=== PATIENT | male | born 1970 | race Caucasian/White ===

== ENCOUNTER 2020-02-17 12:33 | Outpatient (REF) | payer OTHER, SELFPAY ==
[2020-02-17 13:44] LABS: MANUAL DIFF FLAG NO
[2020-02-17 13:57] LABS: Basophils Percent Auto 0.8 % (0-2); Eosinophils Percent Auto 0.8 % (0-4); Hematocrit 42.4 % (42-52); Hemoglobin 14.3 g/dl (14.0-18.0); Imm Gran Abs Auto 0.01 X10*3/uL (0.00-0.03); Imm Gran Pct Auto 0.3 % (0.0-0.4); Lymphocytes Absolute Auto 1.1 X10*3/uL (1.2-4.9); Lymphocytes Percent Auto 27.4 % (20-40); Mean Corpuscular HGB Conc 33.7 g/dl (31.0-36.0); Mean Corpuscular Hemoglobin 30.6 pg (27.0-33.0); Mean Corpuscular Volume 90.8 fL (80-98); Mean Platelet Volume 10.4 fL (9.4-12.4); Monocytes Absolute Auto 0.4 X10*3/uL (0.1-1.2); Monocytes Percent Auto 10.7 % (2-11); Neutrophils Absolute Auto 2.3 X10*3/uL (2.0-8.3); Platelet Count 217 X10*3/uL (160-400); Red Blood Count 4.67 X10*6/uL (4.60-5.80); Red Cell Distribution Width 12.7 % (11.0-16.0); White Blood Count 3.8 X10*3/uL (4.8-10.8)
[2020-02-17 14:39] LABS: Alanine Aminotransferase 13 U/L (0-40); Albumin Level 4.2 g/dL (3.5-5.0); Alkaline Phosphatase 75 U/L (39-117); Anion Gap 12 (12-20); Aspartate Amino Transferase 20 U/L (5-37); Bilirubin Total 1.1 mg/dL (0.0-1.0); Blood Urea Nitrogen 7 mg/dL (9-16); Calcium 8.8 mg/dL (8.4-10.2); Carbon Dioxide 26 mmol/L (22-29); Chloride 105 mmol/L (96-108); Estimated Glomerular Filt Rate > 60; Glucose Random 89 mg/dL (60-115); Potassium 3.9 mmol/l (3.3-5.1); Sodium 139 mmol/L (135-145); Total Protein 6.9 g/dL (6.5-8.0)
[2020-02-17 14:45] LABS: Thyroid Stimulating Hormone 2.93 uIU/mL (0.32-4.0)
[2020-02-17 15:13] LABS: Erythrocyte Sedimentation Rate 2 MM/HR (0-15)
== END 2020-02-17 12:34 | disposition home or self-care (01) ==
LOC: HO.10HDL 12:33
PROVIDERS: Visit Provider Family Medicine
DX: R63.4 Abnormal weight loss (principal)
CPT/HCPCS: 36415; 80053; 84443; 85025; 85652

== ENCOUNTER 2020-05-16 15:13 | Outpatient (REF) | payer OTHER, SELFPAY ==
[2020-05-16 16:52] LABS: Alanine Aminotransferase 14 U/L (0-40); Albumin Level 4.3 g/dL (3.5-5.0); Alkaline Phosphatase 78 U/L (39-117); Anion Gap 11 (12-20); Aspartate Amino Transferase 19 U/L (5-37); Bilirubin Total 0.8 mg/dL (0.0-1.0); Blood Urea Nitrogen 9 mg/dL (9-16); Calcium 9.1 mg/dL (8.4-10.2); Carbon Dioxide 28 mmol/L (22-29); Chloride 105 mmol/L (96-108); Estimated Glomerular Filt Rate > 60; Glucose Random 72 mg/dL (60-115); Potassium 3.9 mmol/L (3.3-5.1); Sodium 140 mmol/L (135-145); Total Protein 7.1 g/dL (6.5-8.0)
[2020-05-16 17:07] LABS: Thyroid Stimulating Hormone 2.71 uIU/mL (0.32-4.0)
== END 2020-05-16 15:14 | disposition home or self-care (01) ==
LOC: HO.LAB 15:13
PROVIDERS: PCP Family Medicine; Visit Provider Family Medicine
DX: R63.4 Abnormal weight loss (principal)
CPT/HCPCS: 36415; 80053; 84443

== ENCOUNTER 2020-12-14 08:05 | Outpatient (REF) | payer OTHER, SELFPAY ==
--- NOTE | ~2020-12-14 | FL_ITS ---
EXAMINATION: FL BARIUM SWALLOW CLINICAL INFORMATION: Dysphagia COMPARISON: None TECHNIQUE: Barium swallow examination is performed using fluoroscopic evaluation in addition to multiple fluoroscopic spot views. The patient is imaged both upright and prone and using both thick and thin sulfate along with effervescent granules. Barium tablet was also administered. Fluoroscopy time: 1.8 minutes DAP: 12.6 Gycm2 Images: 64 FINDINGS: The swallowing mechanism is normal. No aspiration or penetration is seen. There is a small sliding-type hiatal hernia. There is temporary stasis of the barium tablet in the distal thoracic esophagus. There is mucosal irregularity of the distal thoracic esophagus questionable for mild esophagitis. There is mild narrowing of the distal thoracic esophagus just above the hernia more suggestive of a stricture than Schatzki ring. There is minimal gastroesophageal reflux. FL/FL barium swallow IMPRESSION: Sliding-type hiatal hernia, mild stricture of the distal thoracic esophagus and mild esophagitis. Endoscopic correlation recommended.
== END 2020-12-14 08:06 | disposition home or self-care (01) ==
LOC: HO.XRAY 08:05
PROVIDERS: PCP Family Medicine; Visit Provider Family Medicine
DX: R13.10 Dysphagia, unspecified (principal); K21.9 Gastro-esophageal reflux disease without esophagitis; G80.9 Cerebral palsy, unspecified
CPT/HCPCS: 74220

== ENCOUNTER 2021-05-20 13:03 | Outpatient (REF) | payer OTHER, SELFPAY ==
[2021-05-20 13:18] LABS: MANUAL DIFF FLAG NO
[2021-05-20 14:25] LABS: Basophils Percent Auto 0.8 % (0-2); Eosinophils Absolute Auto 0.1 X10*3/uL (0.0-0.4); Eosinophils Percent Auto 1.3 % (0-4); Hematocrit 44.3 % (42.0-52.0); Hemoglobin 14.5 g/dl (14.0-18.0); Imm Gran Abs Auto 0.01 X10*3/uL (0.00-0.03); Imm Gran Pct Auto 0.2 % (0.0-0.4); Lymphocytes Absolute Auto 1.5 X10*3/uL (1.2-4.9); Lymphocytes Percent Auto 30.5 % (20-40); Mean Corpuscular HGB Conc 32.7 g/dl (31.0-36.0); Mean Corpuscular Hemoglobin 29.4 pg (27.0-33.0); Mean Corpuscular Volume 89.7 fL (80.0-98.0); Mean Platelet Volume 9.8 fL (9.4-12.4); Monocytes Absolute Auto 0.5 X10*3/uL (0.1-1.2); Monocytes Percent Auto 11.4 % (2-11); Neutrophils Absolute Auto 2.7 x10*3/uL (2.0-8.3); Neutrophils Percent Auto 55.8 % (45-73); Platelet Count 239 X10*3/uL (160-400); Red Blood Count 4.94 X10*6/uL (4.60-5.80); Red Cell Distribution Width 12.7 % (11.0-16.0); White Blood Count 4.8 X10*3/uL (4.8-10.8)
[2021-05-20 14:56] LABS: Alanine Aminotransferase 15 U/L (0-40); Albumin Level 4.3 g/dL (3.5-5.0); Alkaline Phosphatase 77 U/L (39-117); Anion Gap 12 (12-20); Aspartate Amino Transferase 22 U/L (5-37); Bilirubin Total 0.8 mg/dL (0.0-1.0); Blood Urea Nitrogen 8 mg/dL (9-16); Calcium 9.2 mg/dL (8.4-10.2); Carbon Dioxide 26 mmol/L (22-29); Chloride 107 mmol/L (96-108); Estimated Glomerular Filt Rate > 60; Glucose Random 95 mg/dL (60-115); Potassium 3.9 mmol/L (3.3-5.1); Sodium 141 mmol/L (135-145); Total Protein 7.4 g/dL (6.5-8.0)
== END 2021-05-20 13:04 | disposition home or self-care (01) ==
LOC: HO.LAB 13:03
PROVIDERS: PCP Family Medicine; Visit Provider Family Medicine
DX: E78.5 Hyperlipidemia, unspecified (principal); K21.9 Gastro-esophageal reflux disease without esophagitis; R53.83 Other fatigue
CPT/HCPCS: 36415; 80053; 85025

== ENCOUNTER 2021-11-29 13:59 | Outpatient (REF) | payer OTHER, SELFPAY ==
--- NOTE | 2021-11-29 14:06 | ECG_ITS ---
Test Reason : tachycardia Blood Pressure : / mmHG Vent. Rate : 112 BPM Atrial Rate : 112 BPM P-R Int : 126 ms QRS Dur : 078 ms QT Int : 328 ms P-R-T Axes : 061 025 058 degrees QTc Int : 447 ms Sinus tachycardia Otherwise normal ECG No previous ECGs available Referred By: Sascha Massey Electronically Signed By:SUN VALDEZ
[2021-11-29 14:21] LABS: MANUAL DIFF FLAG NO
[2021-11-29 14:39] LABS: Basophils Percent Auto 0.8 % (0-2); Eosinophils Percent Auto 0.6 % (0-4); Hematocrit 45.4 % (42.0-52.0); Hemoglobin 15.7 g/dl (14.0-18.0); Imm Gran Abs Auto 0.01 X10*3/uL (0.00-0.03); Imm Gran Pct Auto 0.2 % (0.0-0.4); Lymphocytes Absolute Auto 1.5 X10*3/uL (1.2-4.9); Lymphocytes Percent Auto 30.6 % (20-40); Mean Corpuscular HGB Conc 34.6 g/dl (31.0-36.0); Mean Corpuscular Hemoglobin 30.3 pg (27.0-33.0); Mean Corpuscular Volume 87.5 fL (80.0-98.0); Mean Platelet Volume 9.5 fL (9.4-12.4); Monocytes Absolute Auto 0.5 X10*3/uL (0.1-1.2); Monocytes Percent Auto 10.6 % (2-11); Neutrophils Absolute Auto 2.8 x10*3/uL (2.0-8.3); Neutrophils Percent Auto 57.2 % (45-73); Platelet Count 270 X10*3/uL (160-400); Red Blood Count 5.19 X10*6/uL (4.60-5.80); Red Cell Distribution Width 12.4 % (11.0-16.0); White Blood Count 4.9 X10*3/uL (4.8-10.8)
[2021-11-29 15:22] LABS: Free T4 (Free Thyroxine) 0.96 ng/dL (0.71-1.85); Thyroid Stimulating Hormone 3.15 uIU/mL (0.32-4.0)
== END 2021-11-29 14:00 | disposition home or self-care (01) ==
LOC: HO.LAB 13:59
PROVIDERS: PCP Family Medicine; Visit Provider Family Medicine
DX: R00.0 Tachycardia, unspecified (principal)
CPT/HCPCS: 36415; 84439; 84443; 85025; 93005

== ENCOUNTER 2022-05-23 13:48 | Outpatient (REF) | payer OTHER, SELFPAY ==
[2022-05-23 14:10] LABS: MANUAL DIFF FLAG NO
[2022-05-23 15:19] LABS: Basophils Absolute Auto 0.1 X10*3/uL (0.0-0.2); Basophils Percent Auto 1.1 % (0-2); Eosinophils Absolute Auto 0.1 X10*3/uL (0.0-0.4); Eosinophils Percent Auto 1.3 % (0-4); Hematocrit 42.4 % (42.0-52.0); Hemoglobin 14.4 g/dl (14.0-18.0); Imm Gran Abs Auto 0.01 X10*3/uL (0.00-0.03); Imm Gran Pct Auto 0.2 % (0.0-0.4); Lymphocytes Absolute Auto 1.5 X10*3/uL (1.2-4.9); Lymphocytes Percent Auto 31.7 % (20-40); Mean Corpuscular Hemoglobin 29.8 pg (27.0-33.0); Mean Corpuscular Volume 87.6 fL (80.0-98.0); Mean Platelet Volume 9.7 fL (9.4-12.4); Monocytes Absolute Auto 0.5 X10*3/uL (0.1-1.2); Monocytes Percent Auto 9.8 % (2-11); Neutrophils Absolute Auto 2.6 x10*3/uL (2.0-8.3); Neutrophils Percent Auto 55.9 % (45-73); Platelet Count 257 X10*3/uL (160-400); Red Blood Count 4.84 X10*6/uL (4.60-5.80); Red Cell Distribution Width 12.3 % (11.0-16.0); White Blood Count 4.6 X10*3/uL (4.8-10.8)
[2022-05-23 16:19] LABS: Anion Gap 11 (12-20); Blood Urea Nitrogen 8 mg/dL (9-16); Carbon Dioxide 26 mmol/L (22-29); Chloride 107 mmol/L (96-108); Estimated Glomerular Filt Rate > 60; Potassium 4.4 mmol/L (3.3-5.1); Sodium 140 mmol/L (135-145)
== END 2022-05-23 13:49 | disposition home or self-care (01) ==
LOC: HO.LAB 13:48
PROVIDERS: PCP Family Medicine; Visit Provider Family Medicine
DX: I10 Essential (primary) hypertension (principal); D72.819 Decreased white blood cell count, unspecified
CPT/HCPCS: 36415; 80051; 82565; 84520; 85025

== ENCOUNTER 2023-07-10 13:19 | Outpatient (REF) | payer OTHER, SELFPAY ==
[2023-07-10 13:35] LABS: MANUAL DIFF FLAG NO
[2023-07-10 13:45] LABS: Basophils Percent Auto 0.9 % (0-2); Eosinophils Percent Auto 0.7 % (0-4); Hemoglobin 14.8 g/dl (14.0-18.0); Imm Gran Abs Auto 0.01 X10*3/uL (0.00-0.03); Imm Gran Pct Auto 0.2 % (0.0-0.4); Lymphocytes Percent Auto 22.7 % (20-40); Mean Corpuscular HGB Conc 33.6 g/dl (31.0-36.0); Mean Corpuscular Hemoglobin 29.8 pg (27.0-33.0); Mean Corpuscular Volume 88.7 fL (80.0-98.0); Mean Platelet Volume 9.3 fL (9.4-12.4); Monocytes Absolute Auto 0.4 X10*3/uL (0.1-1.2); Monocytes Percent Auto 9.6 % (2-11); Neutrophils Absolute Auto 2.9 x10*3/uL (2.0-8.3); Neutrophils Percent Auto 65.9 % (45-73); Platelet Count 230 X10*3/uL (160-400); Red Blood Count 4.96 X10*6/uL (4.60-5.80); Red Cell Distribution Width 12.3 % (11.0-16.0); White Blood Count 4.4 X10*3/uL (4.8-10.8)
[2023-07-10 14:45] LABS: Free T4 (Free Thyroxine) 0.84 ng/dL (0.71-1.85); Thyroid Stimulating Hormone 2.52 uIU/mL (0.32-4.0)
== END 2023-07-10 13:20 | disposition home or self-care (01) ==
LOC: HO.LAB 13:19
PROVIDERS: PCP Family Medicine; Visit Provider Family Medicine
DX: K21.9 Gastro-esophageal reflux disease without esophagitis (principal); R00.0 Tachycardia, unspecified
CPT/HCPCS: 36415; 84439; 84443; 85025

== ENCOUNTER 2024-05-02 15:27 | Outpatient (REF) | payer OTHER, SELFPAY ==
[2024-05-02 15:39] LABS: MANUAL DIFF FLAG NO
[2024-05-02 16:19] LABS: Basophils Percent Auto 0.9 % (0-2); Eosinophils Absolute Auto 0.1 X10*3/uL (0.0-0.4); Eosinophils Percent Auto 1.4 % (0-4); Hematocrit 43.6 % (42.0-52.0); Hemoglobin 14.9 g/dl (14.0-18.0); Imm Gran Abs Auto 0.01 X10*3/uL (0.00-0.03); Imm Gran Pct Auto 0.2 % (0.0-0.4); Lymphocytes Absolute Auto 0.8 X10*3/uL (1.2-4.9); Lymphocytes Percent Auto 18.6 % (20-40); Mean Corpuscular HGB Conc 34.2 g/dl (31.0-36.0); Mean Corpuscular Hemoglobin 30.2 pg (27.0-33.0); Mean Corpuscular Volume 88.3 fL (80.0-98.0); Mean Platelet Volume 9.3 fL (9.4-12.4); Monocytes Absolute Auto 0.6 X10*3/uL (0.1-1.2); Monocytes Percent Auto 13.4 % (2-11); Neutrophils Absolute Auto 2.8 x10*3/uL (2.0-8.3); Neutrophils Percent Auto 65.5 % (45-73); Platelet Count 216 X10*3/uL (160-400); Red Blood Count 4.94 X10*6/uL (4.60-5.80); Red Cell Distribution Width 12.6 % (11.0-16.0); White Blood Count 4.3 X10*3/uL (4.8-10.8)
--- OUTSIDE RECORDS SUMMARY | 2024-05-02 17:44 | XMS_ITS ---
Author Organization [facility] Address [address] [place] [address] Care Team Providers Care Crewman Armoured Personnel Carrier M113 Name Role Phone Sascha Massey MD Primary Care Provider Unavailab Tyler Aguirre Unavailable [phone] REASON FOR VISIT Patient presents today for a screening colonoscopy Encounters Encounter Location Date Provider Diagnosis [facility] [address] [place] [address] 08/26/2023 Tyler Perez PLAN OF TREATMENT No Information
--- OUTSIDE RECORDS SUMMARY | 2024-05-02 17:44 | XMS_ITS | Data Portability ---
Author Organization [place] [facility] Address [address] [address] Care Team Providers Care Counselor/Art Therapist Name Role Phone DAVEY DOOLEY Primary Care Provider Assessment Encounter Date Assessment Date Assessment LastModified by Organization Details LastModified Time 08/28/2023 08/28/2023 53-year-old male presents for cerumen removal. Cerumen impaction removed bilaterally. Bilateral TMs are intact. He will follow up in 2 months for routine cerumen removal due to rapid cerumen accumulation. [email or web address] Not available 08/28/2023 14:02:24 10/30/2023 10/30/2023 53-year-old male presents for cerumen removal. Cerumen impaction removed bilaterally. Bilateral TMs are intact. There is mild irritation of the left ear canal without otorrhea. I have recommended to finish course of ciprofloxacin eardrops as prescribed by his PCP. He will follow-up in 2 months for repeat debridement, or sooner with concerns. [email or web address] Not available 10/30/2023 14:46:47 12/18/2023 12/18/2023 53-year-old male presents for cerumen removal. Cerumen impaction removed bilaterally. Bilateral TMs are intact. He will follow-up in 2 months for repeat debridement, or sooner with concerns. [email or web address] Not available 12/18/2023 13:17:19 04/04/2024 04/04/2024 53-year-old male presents for cerumen removal. Cerumen impaction removed bilaterally. Right external auditory canal with malodorous purulent otorrhea. Left TM is intact and well-aerated. Recommend topical CiproDex twice daily into right ear canal for 14 days. Reviewed drop administration and water precautions. Patient will return for revaluation in 2-3 weeks to assess for infection resolution. Patient agrees with plan. [email or web address] Not available 04/04/2024 13:45:54 04/18/2024 04/18/2024 53yo male presents for reevaluation of right otorrhea. He trialed topical antibiotic drops x2 weeks. TMs are intact and well-aerated. External auditory canals without obstruction or purulence. Recommend routine cerumen debridements as scheduled. [email or web address] Not available 04/18/2024 13:36:03 Plan of Treatment Reminders Order Date Submit Date Provider Last Modified By Organization Details Last Modified Time Details Appointments Establish ed 15 2024 11:00A M AMBER SINGH PA-C Not available Not available Not available Establish ed 15 2024 11:15A M AMBER SINGH PA-C Not available Not available Not available Establish ed 15 2024 01:00P Betsy LARA PA-C Not available Not available Not available Lab None recorded. Referral None recorded. Procedures None recorded. Surgeries None recorded. Imaging None recorded. Medication Orders ciproflox acin 0.3 %-dexamet hasone 0.1 % ear drops,vero pension 2024 025 [facility] #[id number], [address] [place], [address], 04/04/2024 13:34:04 Patient TargetsNo targets recorded. Patient InstructionsNo instructions recorded. Reason for Referral None Reported. Problems Name Problem SNOMED Code Status Onset Date Resolution Date Notes Provider Name and Address Organization Details Recorded Time Mycosis 5170728 Active 2020 Other specified mycoses; Note: Date Diagnosed : 09/28/2020 12:03 PM (B48.8) Not Available Pending sale to [facility] 03:19:00 Impacted cerumen of bilateral ears 90773150870 40297 Active 2020 Impacted cerumen, bilateral ; Note: Date Diagnosed : 04/06/2020 12:08 PM (H61.23) Not Available Pending sale to [facility] 08/02/202 4 03:19:00 Otitis externa of left ear 01070498620 30423 Active 2023 JENNIFER LARA PA-C [address] [facility],[address] [place] [address], [place], [address] , [facility] 4 14:45:56 Otorrhea of right ear 99619579804 37804 Active 2024 AMBER SINGH PA-C [address] [place] [address],[address] [place] [address], [place], [address] , [facility] - [facility] 5 13:33:03 Problem Notes None recorded. Procedures Surgical History Date Name Laterality Status Provider Name and Address Organization Details Recorded Time 5 Cerumen removal without microscope bilat completed AMBER SINGH PA-C [address] [facility],[place] [place] [address], [place], [address], [facility] 04/04/2024 13:44:19 4 Cerumen removal without microscope bilat completed JENNIFER LARA PA-C [address] [place] [address],[address], [address], [facility] 12/18/2023 13:17:00 4 Cerumen removal without microscope bilat completed JENNIFER LARA PA-C [address] [place] [address],[address], [address], [facility] 08/28/2023 14:01:59 Imaging Results None recorded. Procedure Notes None recorded. Medical Equipment None Reported. Allergies No known drug allergies Medications Name Sig Start Date Stop Date Status Note LastModified by Organization Details LastModified Time methocarb shellie 500 mg tablet 10/27 completed Medicati on ID: [id number] B rand Name: methocar bamol Se nd Method: E-Prescr ibed Sub s Allowed: subs OK Medic ationGen ericName : methocar bamol Not Available Not Available Not Available lorazepam 0.5 mg tablet 12/13 completed Medicati on ID: [id number] B rand Name: lorazepa m Send Method: E-Prescr ibed Sub s Allowed: subs OK Speci al Instruct ion: TAKE 1 TABLET BY MOUTH EVERY 8 HOURS NEEDED M brenda nGeneric Name: lorazepa m Not Available Not Available Not Available clotrimaz ole 1 % topical solution 12/13 completed Medicati on ID: [id number] B rand Name: clotrima zole Sen d Method: E-Prescr ibed Sub s Allowed: subs OK Medic ationGen ericName : clotrima zole Not Available Not Available Not Available omeprazol e 20 mg capsule,d elayed release TAKE 1 CAPSULE BY MOUTH EVERY DAY active Not Available Not Available No t Available Cipro HC 0.2 %-1 % ear drops,vero pension INSTILL 1 DROP INTO LEFT EAR 4 TIMES A DAY FOR 5 DAYS THEN STOP active Not Available Not Available No t Available naproxen 500 mg tablet 10/27 completed Medicati on ID: [id number] B rand Name: naproxen Send Method: E-Prescr ibed Sub s Allowed: subs OK Medic ationGen ericName : naproxen Not Available Not Available Not Available tobramyci n 0.3 %-dexamet hasone 0.1 % eye drops,vero pension INSTILL 4 DROPS INTO RIGHT EAR TWICE DAILY FOR 14 DAYS active Not Available Not Available No t Available ciproflox acin 0.3 %-dexamet hasone 0.1 % ear drops,vero pension active Not Available Not Available Not Available Vitals Date Recorded Body height Body mass index (BMI) Body weight Provider Name and Address Organization Details Last Updated DateTime 08/28/2023 165.1 cm 25 kg/m2 41931.86 g Laury Almonte [facility] 08/28/2023 13:28:50 Date Recorded Body height Body mass index (BMI) Body weight Provider Name and Address Organization Details Last Updated DateTime 10/30/2023 165.1 cm 25 kg/m2 65803.86 g Preeti Bond [facility] 10/30/2023 13:14:12 Date Recorded Body height Body mass index (BMI) Body weight Provider Name and Address Organization Details Last Updated DateTime 12/18/2023 165.1 cm 25 kg/m2 26775.86 g Dianne Strickland [facility] 12/18/2023 12:53:22 Date Recorded Body height Body mass index (BMI) Body weight Provider Name and Address Organization Details Last Updated DateTime 04/04/2024 165.1 cm 25 kg/m2 88072.86 g Deysi David [facility] 04/04/2024 13:11:09 Date Recorded Body height Body mass index (BMI) Body weight Provider Name and Address Organization Details Last Updated DateTime 04/18/2024 165.1 cm 24.6 kg/m2 16094.67 g Mattie Ramos [facility] 04/18/2024 13:26:43 Social History None recorded. Functional Status None recorded. Mental Status None recorded. Family History Nothing Reported. Medical History Condition Response Anxiety Y GERD/Reflux Y Past Encounters Encounter ID Performer Location Encounter Start Date Encounter Closed Date Diagnosis/Indication Diagnosis SNOMED-CT Code Diagnosis ICD10 Code Diagnosis Note [id number] VICTORINA ACUNA MD [facility] [address] [address] 08/28/2023 13:22:59 08/28/2023 15:31:57 Impacted cerumen of bilateral ears 0876638059 188902 H61.23 [id number] MEI KEMP MD [facility] [address] [address] 10/30/2023 12:43:05 10/30/2023 13:38:04 Otitis externa of left ear 8367945152 738661 H60.312 Impacted c erumen of bilateral ears 7454322072 241161 H61.23 [id number] SUN MARQUEZ MD [facility] [address] [address] 12/18/2023 12:47:16 12/18/2023 13:21:00 Impacted cerumen of bilateral ears 2734912799 718455 H61.23 [id number] MEI KEMP MD [facility] [address] [address] 04/04/2024 13:00:56 04/04/2024 13:35:02 Impacted cerumen of bilateral ears 1938069462 453185 H61.23 Otorrhea of right ear 10 05830977 759978 H92.11 [id number] VICTORINA ACUNA MD [facility] [address] [place] [address] 04/18/2024 13:00:16 04/18/2024 13:35:01 Otorrhea of right ear 1367038626 933509 H92.11 Health Concerns Section Related Observation LastModified by Organization Detai ls LastModified Time None Recorded Concern Status LastModified by Organization Details LastModified Time None Recorded Advance Directives Directive None Recorded Payers Encounter Date Sequence Insurance Name Policy Number Policy [place] Covered Member ID [place] Member ID Guarantor Name 08/28/2023 1 [place]IC[place]: [employer] Cem S Brawsay [id number] Cem S Brawsay 10/30/2023 1 [facility] (MEDICAID HMO) [id number] Cem S Brawsay [id number] Cem S Brawsay 12/18/2023 1 [facility] (MEDICAID HMO) [id number] Cem S Brawsay [id number] Cem S Brawsay 04/04/2024 1 [facility] (MEDICAID HMO) [id number] Cem S Brawsay [id number] Cem S Brawsay 04/18/2024 1 [facility] (MEDICAID HMO) [id number] Cem S Brawsay [id number] Cem S Brawsay Notes Date Note Type Note Provider Name and Address Organization Details Recorded Time 08/28/2023 text/html 53-year-old male presents for cerumen removal. No concerns today. VICTORINA ACUNA MD [address] [place] [address], [address], [place] - [facility] 08/28/2023 14:39:03 10/30/2023 text/html 53-year-old male presents for cerumen removal. Reports left sided ear pain last week and was started on Cipro HC by his PCP x 5 days. Otalgia has resolved. MEI KEMP MD [address] [place] [address],[address], [address], [place] - [facility] 10/30/2023 17:05:14 12/18/2023 text/html 53-year-old male presents for cerumen removal. No concerns today. SUN MARQUEZ MD [address] [facility],[address], [address], [place] [facility] 12/18/2023 15:28:59 04/04/2024 text/html 53-year-old male presents for cerumen removal. Reports no change in hearing. Denies otalgia, otorrhea, change in tinnitus, or Qtip use. MEI KEMP MD [address] [facility],[address] [address], [place], [address], [place] [facility] 04/05/2024 10:28:05 04/18/2024 text/html 53yo male presen ts for reevaluation of right otorrhea. He trialed topical antibiotic drops x2 weeks. Reports he is asymptomatic. No new concerns. VICTORINA ACUNA MD [address] [facility],[place] [place] [address], [place], [address], [place] [facility] 04/19/2024 16:42:38
--- OUTSIDE RECORDS SUMMARY | 2024-05-02 17:44 | XMS_ITS ---
Author Organization [facility] Address [address] [place] [address] Care Team Providers Care Accredited Farm Manager Name Role Phone Sascha Massey MD Primary Care Provider Unavailab Tyler Aguirre Unavailable [phone] REASON FOR VISIT cancelled appt on01/15/2024 @ 1:40 pm Encounters Encounter Location Date Provider Diagnosis [facility] [address] [place] [address] 12/28/2023 Tyler Perez PLAN OF TREATMENT No Information
--- OUTSIDE RECORDS SUMMARY | 2024-05-02 17:45 | XMS_ITS | Continuity of Care Document ---
Author Organization [place] - [facility], [facility] Address [address] [place] [address] Care Team Providers Care Perinatal Educator Name Role Phone DAVEY DOOLEY Primary Care Provider Assessment Encounter Date Assessment Date Assessment LastModified by Organization Details LastModified Time 04/04/2024 04/04/2024 53-year-old male presents for cerumen removal. Cerumen impaction removed bilaterally. Right external auditory canal with malodorous purulent otorrhea. Left TM is intact and well-aerated. Recommend topical CiproDex twice daily into right ear canal for 14 days. Reviewed drop administration and water precautions. Patient will return for revaluation in 2-3 weeks to assess for infection resolution. Patient agrees with plan. demar Not available 04/04/2024 13:45:54 Plan of Treatment Reminders Order Date Submit Date Provider Last Modified By Organization Details Last Modified Time Details Appointments Establish ed 15 2024 11:00A M AMBER SINGH PA-C Not available Not available Not available Establish ed 15 2024 11:15A M AMBER SINGH PA-C Not available Not available Not available Establish ed 15 2024 01:00P M JENNIFER LARA PA-C Not available Not available Not available Lab None recorded. Referral None recorded. Procedures None recorded. Surgeries None recorded. Imaging None recorded. Medication Orders ciproflox acin 0.3 %-dexamet hasone 0.1 % ear drops,vero moss 2024 025 [id number] [address] [facility], [place], [address], 04/04/2024 13:34:04 Patient TargetsNo targets recorded. Patient InstructionsNo instructions recorded. Reason for Referral None Reported. Problems Name Problem SNOMED Code Status Onset Date Resolution Date Notes Provider Name and Address Organization Details Recorded Time Mycosis 5849182 Active 2020 Other specified mycoses; Note: Date Diagnosed : 09/28/2020 12:03 PM (B48.8) Not Available [facility] 4 03:19:00 Impacted cerumen of bilateral ears 62357111257 67296 Active 2020 Impacted cerumen, bilateral ; Note: Date Diagnosed : 04/06/2020 12:08 PM (H61.23) Not Available [facility] 4 03:19:00 Otitis externa of left ear 90439553104 35698 Active 2023 JENNIFER LARA PA-C [address] [facility],[place] [address], [place], [address] , [place] - [facility] 4 14:45:56 Otorrhea of right ear 69602137816 82009 Active 2024 AMBER SINGH PA-C [address] [place] [address],[place] [address], [place], [address] , [facility] - [facility] 5 13:33:03 Problem Notes None recorded. Procedures Surgical History Date Name Laterality Status Provider Name and Address Organization Details Recorded Time 5 Cerumen removal without microscope bilat completed AMBER SINGH PA-C [address] [facility],[place] [address], [place], [address], [facility] - [facility] 04/04/2024 13:44:19 4 Cerumen removal without microscope bilat completed JENNIFER LARA PA-C [address] [facility],[address], [address], [facility] - [facility] 12/18/2023 13:17:00 4 Cerumen removal without microscope bilat completed JENNIFER LARA PA-C [address] [facility],[place] [address], [place], [address], [facility] 08/28/2023 14:01:59 Imaging Results None recorded. Procedure Notes None recorded. Medical Equipment None Reported. Allergies No known drug allergies Medications Name Sig Start Date Stop Date Status Note LastModified by Organization Details LastModified Time methocarb shellie 500 mg tablet 10/27 completed Medicati on ID: [id number] B rand Name: methocar bamol Se nd Method: E-Prescr ibed Sub s Allowed: subs OK Medic ationGen ericName : methocar bamol Not Available Not Available Not Available lorazepam 0.5 mg tablet 12/13 completed Medicati on ID: [id number] B rand Name: lorazepa m Send Method: E-Prescr ibed Sub s Allowed: subs OK Speci al Instruct ion: TAKE 1 TABLET BY MOUTH EVERY 8 HOURS NEEDED M edjustin Hardy Name: lorazepa m Not Available Not Available Not Available clotrimaz ole 1 % topical solution 12/13 completed Medicati on ID: [id number] B rand Name: clotrima zole Sen d [...] mg tablet 10/27 completed Medicati on ID: [id number] B rand Name: naproxen Send Method: E-Prescr [...] Updated DateTime 04/04/2024 165.1 cm 25 kg/m2 46937.86 g Deysi Hernandez [place] - [facility] 04/04/2024 13:11:09 Social History None recorded. Functional Status None recorded. Mental Status None recorded. Family History Nothing Reported. Medical History Condition Response Anxiety Y GERD/Reflux Y Past Encounters Encounter ID Performer Location Encounter Start Date Encounter Closed Date Diagnosis/Indication Diagnosis SNOMED-CT Code Diagnosis ICD10 Code Diagnosis Note [id number] MEI KEMP MD [facility] [address] [address] 04/04/2024 13:00:56 04/04/2024 13:35:02 Impacted cerumen of bilateral ears 2738071048 475300 H61.23 Otorrhea of right ear 10 73861820 967180 H92.11 Health Concerns Section Related Observation LastModified by Organization Detai ls LastModified Time None Recorded Concern Status LastModified by Organization Details LastModified Time None Recorded Payers Encounter Date Sequence Insurance Name Policy Number Policy [place] Covered Member ID [place] Member ID Guarantor Name 04/04/2024 1 [facility] (MEDICAID HMO) [id number] Cem Lei [id number] Cem Lei Notes Date Note Type Note Provider Name and Address Organization Details Recorded Time 04/04/2024 text/html 53-year-old male presents for cerumen removal. Reports no change in hearing. Denies otalgia, otorrhea, change in tinnitus, or Qtip use. MEI KEMP MD [address] [place] [address], [address], [place] - [facility] 04/05/2024 10:28:05
--- OUTSIDE RECORDS SUMMARY | 2024-05-02 17:45 | XMS_ITS | Patient Health Record ---
Author Organization [facility] Address [address] [place] [address] Care Team Providers Care Slot Machine Floor Person Name Role Phone Bryson PEREZ, Sascha Primary Care Provider UnavailTyler Blanton [phone] ALLERGIES Allergen (clinical drug ingredient) Drug/Non Drug Allergy documented on EMR Reaction Allergy Type Onset Date Status erythromycin Erythromycin Unknown Drug Allergy A ctive REASON FOR REFERRAL No Information MEDICATIONS Medication SIG (Take, Route, Fr equency, Duration) Notes Start Date End Date Status Omeprazole 20 MG 1 capsule 30 minutes before morning meal Orally Once a day for 30 day(s) Active Lorazepam Just prn Active IMMUNIZATIONS Vaccine Route Administration Date Status Comme nts Influenza Unknown 12/07/2020 Administered SOCIAL HISTORY Tobacco Use: Social History Observation Description Date Details (start date - stop date) Never Smoker NA - NA Sex Assigned At : Social History Observation Description Sex Assigned At Unknown Tobacco Use/Smoking Question Answer Notes Patient is a nonsmoker Alcohol Screen Question Answer Notes Did you have a drink containing alcohol in the p ast year? No Points 0 Interpretation Negative PROBLEMS Problem Type ICD Code Onset Dates Problem Status W/U Status Risk SNOMED Code Notes Problem Esophageal stricture (K22.2) Active confirmed 22922571 Problem Esophageal dysphagia (R13.19) Active confirmed 42851217 Encounters Encounter Location Date Provider Diagnosis [facility] [address] [place] [phone] 08/26/2023 Tyler Perez [facility] [address] [place] [phone] 01/15/2024 Tyler Perez [facility] [address] [place] [phone] 12/28/2023 Tyler Perez PLAN OF TREATMENT No Information Insurance Providers Payer Name Payer Address Payer Phone Subscriber Number Group Number Insured Name Patient Relationship to Insured Coverage Start Date Coverage End Date [facility] [address] [address] [place], [place] [id number] RYLIE ESCOBAR Self - patient is the insured MEDICARE OF [place] [address] [place] [address] [id number] RYLIE ESCOBAR Self - patient is the insured MEDICAL (GENERAL) HISTORY Medical History History ICD Code Anxiety disorder Denies ID,DM,CVA,Lung disease,renal dise ase Cerebral palsy GERD-hiatal hernia and esoph ageal stricture seen on December 2020 barium swallow Surgical History Surgery Date(Month/Year)
--- OUTSIDE RECORDS SUMMARY | 2024-05-02 17:45 | XMS_ITS ---
Author Organization [facility] Address [address] [place] [address] Care Team Providers Care Ed Educational Aide Name Role Phone Sascha Massey MD Primary Care Provider Unavailab Tyler Aguirre Unavailable [phone] REASON FOR VISIT screening colonoscopy Encounters Encounter Location Date Provider Diagnosis [facility] [address] [place] [address] 01/15/2024 Tlyer Perez PLAN OF TREATMENT No Information
--- OUTSIDE RECORDS SUMMARY | 2024-05-02 17:45 | XMS_ITS | Clinical Summary ---
Author Organization [facility] Address [address] [place] [address] Care Team Providers Care Custom Miller Name Role Phone Unavailable Primary Care Provider Unavailabl e Medical History Medical History Date Comments Infantile cerebral palsy, unspecified 05/02/2005 DX:Infantile cerebral palsy, unspecified Esophageal reflux 05/02/2005 DX:Esophageal reflux Insomnia, unspecified 05/02/2005 DX:Insomni a, unspecified Other chest pain 05/02/2005 DX:Other chest pain; COMMENT: possibly related to cocaine usage 1999 Family History Medical History Relation Name Comments Other: Alzheimer's disease Father Hypertension Mother Relation Name Status Comments Father Mother Social History Tobacco Use Types Packs/Day Years Used Date Smoking Tobacco: Never Alcohol Use Standard Drinks/Week Comments Yes 0 (1 standard drink = 0.6 oz pur e alcohol) Sex and Gender Information Value Date Recorded Sex Assigned at Not on file Legal Sex Male 11:56 AM EST Gender Identity Not on file Sexual Orientation Not on file Obstetrics History Plan of Treatment Health Maintenance Due Date Last Done Comments DTaP,Tdap,and Td Vaccines (1 - Tdap) 1991 Hepatitis B Vaccines (1 of 3 - 19+ 3-dose series) 1991 Cholesterol Screening (Lipid Panel) 02/04/2022 Colorectal Cancer Screening: Colonoscopy 02/04/2022 Depression Screening 02/04/2022 HIV Screening 02/04/2022 Hepatitis C Screening 02/04/2022 Social Influencers of Health Screening 02/04/2022 Pneumococcal Vaccine: 50+ Ye ars (1 of 1 - PCV) 2022 Zoster Vaccines (1 of 2) 2022 COVID-19 Vaccine (2023-2 5 season) 2023 Influenza Vaccine (#1) 2023 HIB Vaccines Aged Out No longer eligi ble based on patient's age to complete this topic HPV Vaccines Aged Out No longer eligi ble based on patient's age to complete this topic Hepatitis A Vaccines Aged Out No long er eligible based on patient's age to complete this topic IPV Vaccines Aged Out No longer eligi ble based on patient's age to complete this topic MMR Vaccines Aged Out No longer eligi ble based on patient's age to complete this topic Meningococcal ACWY Vaccine Aged Out N o longer eligible based on patient's age to complete this topic Meningococcal B Vacine Aged Out No lo nger eligible based on patient's age to complete this topic Pneumococcal Vaccine: Pediat rics (0 to 5 Years) and At-Risk Patients (6 to 64 Years) Aged Out No longer eligible b ased on patient's age to complete this topic RSV Immunization Patients Un vickie 20 months Aged Out No longer eligible b ased on patient's age to complete this topic Varicella Vaccines Aged Out No longer eligible based on patient's age to complete this topic
[2024-05-02 21:14] LABS: Free T4 (Free Thyroxine) 0.87 ng/dL (0.71-1.85); Thyroid Stimulating Hormone 3.01 uIU/mL (0.32-4.0)
== END 2024-05-02 15:28 | disposition home or self-care (01) ==
LOC: HO.LAB 15:27
PROVIDERS: PCP Family Medicine; Visit Provider Family Medicine
DX: R27.0 Ataxia, unspecified (principal); K21.9 Gastro-esophageal reflux disease without esophagitis
CPT/HCPCS: 36415; 84439; 84443; 85025

== ENCOUNTER 2024-10-12 11:24 | Outpatient (AMB) | payer OTHER, SELFPAY ==
--- OUTSIDE RECORDS SUMMARY | 2023-08-26 10:00 | XMS_ITS ---
Author Organization [facility] Address [address] [place] [address] Care Team Providers Care Electrical Test Technician Name Role Phone Bryson (RETIRED) , Sascha Primary Care Provider Unavailable Tyler Perez [phone] REASON FOR VISIT Patient presents today for a screening colonoscopy Encounters Encounter Location Date Provider Diagnosis [facility] [address] [place] [address] 08/26/2023 Tyler Perez Plan Of Treatment No Information Progress Notes * RYLIE ESCOBARDOB:1970 (54 yo M)Acc No.[id number]:08/26/2023 Progress Notes Patient: RYLIE GARCIA Provider: Ngozi Perez MD :1970 A ge:53 Y S ex:Male Date:08/26/2023 Address:[address], [facility] Pcp:Sascha Massey (RETIRED) MD Subjective: * Chief [...] Date: 08/26/2023 Generated for Maninderi ng/Favitog/eTransmitting on: 10/12/2024 12:10 PM EDT
--- NOTE | 2024-10-12 11:25 | A.OFFVIS_ITS ---
Vital Signs 10/12/24 11:32 Height 5 ft 5 in Weight 141 lb BMI 23.5 BP 113/82 Blood Pressure Location Rt brachial Position Sitting Pulse 101 H Intake Visit Reasons: Abscess back Intake Note: Patient referred by pcp Dr. Massey for bump on back. Present for 2m. Patient c/o: draining, broke opened 3-4wks. Improved with abx course. Unsure of abx name. Commercial Loan Closer Required: No Accompanied by: Self / Same As Patient Allergies erythromycin base Allergy (Mild, Verified 10/12/24 11:30) Unknown Medication List - Last Reconciled 10/12/24 by Jose Hollis MD omeprazole 20 mg PO DAILY HPI HPI Abscess back: Details: 54-year-old male referred for a ?abscess? of the back He says he has had a lump on this area of the back which he would notice about over 2 months ago. He said that this started draining about 6 weeks ago. He was therefore referred to me by his primary care physician He says that he no longer sees any drainage. [facility] Medical History (Updated 10/12/24 @ 11:44 by Jose Hollis MD) Epidermal cyst Cerebral palsy Social History (Updated 10/12/24 @ 11:31 by Sheeba López [facility]) Substance Use Type: Marijuana Review of Systems Const Denies chills and Denies fever(s) Card Denies chest pain, Denies dyspnea and Denies dyspnea on exertion Resp Denies cough, Denies dyspnea and Denies dyspnea on exertion GI Denies hematochezia and Denies change in bowel habits Denies hematuria and Denies difficulty urinating Musc Denies back pain and Denies limited range of motion Neuro Denies focal weakness and Denies convulsions Psych Denies depression and Denies mood swings Physical Exam Vital Signs: Last Vital Signs Pulse 101 H 10/12/24 11:32 BP 113/82 10/12/24 11:32 BMI result Body Mass Index 23.5 Const Other: Has involuntary movements of his extremities General: comfortable and no acute distress Orientation/consciousness: patient oriented x3 Neck Neck: Yes no lymphadenopathy Resp Auscultation: clear to auscultation bilaterally Cardio Rhythm: regular rhythm GI Palpation (GI): Soft to palpation, nontender and no guarding Back/Spine/Pelvis Other: Cystic induration on the lower back, about 2.5 cm in diameter, currently non fluctuant and noninflamed Neuro General: patient oriented x3 Assessment & Plan Assessment & Plan (1) Epidermal cyst: Code(s): L72.0 - Epidermal cyst Category: Medical Plan: He has what appears to be an epidermal cyst on his back. This had started draining about 6 years ago He wants this removed I explained the technique of excision under local anesthesia. I reviewed the risks including but not limited to bleeding and infections, as well as the benefits and alternatives. He says he understands and wants to proceed. This will be done in the office under local anesthesia on his next visit. Coding Level of Care Code New Pt Level 3 (80498) Diagnoses Epidermal cyst L72.0
[2024-10-12 11:32] VITALS: BP 113/82; PULSE 101; BMI 23.5
--- OUTSIDE RECORDS SUMMARY | 2024-10-12 12:11 | XMS_ITS | Clinical Summary ---
Author Organization [facility] Address [address] [place] [address] Care Team Providers Care Greenhouse Or Nursery Transplanter Name Role Phone Unavailable Primary Care Provider [...] Panel) 02/04/2022 Colorectal Cancer Screening: Colonoscopy 02/04/2022 HIV Screening 02/04/2022 Hepatitis C Screening 02/04/2022 Social Influencers of Health Screening 02/04/2022 Pneumococcal Vaccine: 50+ Ye ars (1 of 1 - PCV) 2022 Zoster Vaccines (1 of 2) 2022 COVID-19 Vaccine ( - 2023-2 5 season) 2023 Depression Screening 03/09/2024 Influenza Vaccine (#1) 2024 HIB Vaccines Aged Out No longer eligi [...] age to complete this topic Meningococcal B Vaccine Aged Out No l onger eligible based on patient's age to complete this topic RSV Immunization Patients Un vickie 20 months Aged Out No longer eligible b ased on patient's age to complete this topic Varicella Vaccines Aged Out No longer eligible based on patient's age to complete this topic
== END 2024-10-12 11:40 | disposition home or self-care (01) ==
LOC: HO.HGS 11:24
PROVIDERS: PCP Family Medicine; Visit Provider Surgery
DX: L72.0 Epidermal cyst (principal)
CPT/HCPCS: 99203

== ENCOUNTER → 2024-10-12 11:24 | Outpatient (BNVA) | payer OTHER, SELFPAY | PROVIDERS: PCP Family Medicine; Visit Provider Surgery | DX: L72.0 Epidermal cyst (principal) | CPT/HCPCS: 99202 ==

== ENCOUNTER 2024-11-14 13:45 | Outpatient (REF) | payer OTHER, SELFPAY | END 2024-11-14 13:46 | disposition home or self-care (01) | LOC: HO.LNP 13:45 | PROVIDERS: PCP Family Medicine; Visit Provider Surgery | DX: L72.0 Epidermal cyst (principal) | CPT/HCPCS: 11403; 88304 ==

== ENCOUNTER 2024-11-14 13:45 | Outpatient (AMB) | payer OTHER, SELFPAY ==
--- OUTSIDE RECORDS SUMMARY | 2023-08-26 10:00 | XMS_ITS ---
Author Organization [facility] Address [address] [place] [address] Care Team Providers Care Heat Transfer Technician Name Role Phone Bryson (RETIRED) , Sascha Primary Care Provider Unavailable Tyler Perez [phone] REASON FOR VISIT Patient presents today for a screening colonoscopy Encounters Encounter Location Date Provider Diagnosis [facility] [address] [place] [address] 08/26/2023 Tyler Perez Plan Of Treatment No Information Progress Notes * RYLIE ESCOBARDOB:1970 (54 yo M)Acc No.[id number]:08/26/2023 Progress Notes Patient: RYLIE GARCIA Provider: Ngozi Perez MD :1970 A ge:53 Y S ex:Male Date:08/26/2023 Address:[address], [facility] Pcp:Sascha Massey (RETIRED) MD Subjective: * Chief Complaints: * 1 . Patient presents today for a screening colonoscopy. * Medical History: Objective: * Vitals: Assessment: Plan: * Treatment: * * The named appointment provid er may or may not be the originator of this progress note, and it is not deemed complete until electronically signed by the appointment provider. Sign off status: Pending * Provider: Ngozi Perez MD Date: 08/26/2023 Generated for Maninderi ng/Favitog/eTransmitting on: 11/14/2024 04:00 PM EDT
--- OUTSIDE RECORDS SUMMARY | 2024-01-15 09:40 | XMS_ITS ---
Author Organization [facility] Address [address] [place] [address] Care Team Providers Care Sales Operations Consultant Name Role Phone Bryson (RETIRED) , Sascha Primary Care Provider Unavailable Tyler Perez [phone] REASON FOR VISIT screening colonoscopy Encounters Encounter Location Date Provider Diagnosis [facility] [address] [place] [address] 01/15/2024 Tyler Perez Plan Of Treatment No Information Progress Notes * RYLIE ESCOBARDOB:1970 (54 yo M)Acc No.[id number]:01/15/2024 Progress Notes Patient: RYLIE GARCIA Provider: Ngozi Perez MD :1970 A ge:53 Y S ex:Male Date:01/15/2024 Address:[address], [facility] Pcp:Sascha Massey (RETIRED) MD Subjective: * Chief Complaints: * 1 . Screening colonoscopy. * Medical History: Objective: * Vitals: Assessment: Plan: * Treatment: * * The named appointment provid er may or may not be the originator of this progress note, and it is not deemed complete until electronically signed by the appointment provider. Sign off status: Pending * Provider: Ngozi Perez MD Date: 03/16/2023 Generated for Samantha ng/Favitog/eTransmitting on: 0 11/14/2024 04:00 PM EDT
--- NOTE | 2024-11-14 13:56 | MHC.OFFVIS ---
Vital Signs 11/14/24 13:57 Height 5 ft 5 in Weight 140 lb BMI 23.3 BP not taken reason Medical Reason Pulse 76 Intake Visit Reasons: excision lesion back Intake Note: Patient here for cyst excision on back. Clearance Coordinator Required: No Accompanied by: Self / Same As Patient Allergies erythromycin base Allergy (Mild, Verified 11/14/24 13:57) Unknown HPI HPI excision lesion back: Details: He is here for excision of a cyst from the back. [facility] Medical History (Updated 10/12/24 @ 11:44 by Jose Hollis MD) Epidermal cyst Cerebral palsy Social History (Updated 10/12/24 @ 11:31 by JAZIEL Ortega) Substance Use Type: Marijuana Physical Exam Vital Signs: Last Vital Signs Pulse 76 11/14/24 13:57 BMI result Body Mass Index 23.3 Office Procedures Excision Details: He was in prone position. The area of the cyst on the back was prepped and draped. Lidocaine 1% was used for local anesthesia. I made an elliptical incision on the skin overlying this cystic area with a blade 15. This carried down through the full-thickness of the skin and subcutaneous fat to excise this entire cystic mass. There was note of a cyst capsule and this was consistent with an epidermal inclusion cyst. The cyst itself measured about 2.2 cm I completed dissection and this was sent as a specimen. I closed the incision with full-thickness nylon 3-0 simple interrupted sutures. Dressings were applied. The procedure was completed. He tolerated procedure well. There were no immediate complications. 30649-mzdih/arms/legs 2.1-3cm Procedure code (CPT) selection complete Assessment & Plan Assessment & Plan (1) Epidermal cyst: Code(s): L72.0 - Epidermal cyst Category: Medical Plan: Excision was done under local anesthesia. He was given wound care instructions. I will see him for removal of the sutures. Orders: Orders Surgical Today L72.0 - Epidermal cyst Coding Level of Care Code Procedure Only Diagnoses Epidermal cyst L72.0 CPT Codes Trunk/Arms/Legs - CPT: 30840-bfpmf/arms/legs 2.1-3cm ([id number])
[2024-11-14 13:57] VITALS: PULSE 76; BMI 23.3
--- OUTSIDE RECORDS SUMMARY | 2024-11-14 16:01 | XMS_ITS | Clinical Summary ---
Author Organization [facility] Address [address] [place] [address] Phone Care Team Providers Care Guidance Secretary Name Role Phone Physician, No Pcp Primary Care Provider Unavaila ble Allergies Active Allergy Reactions Criticality Noted Date Comments Erythromycin 05/02/2005 as child Encounters Date Type Department Care Team Description 10/28/2024 4:32 PM EDT - 10/28/2024 7:18 PM EDT Emergency [facility] Emergency [address] [place] [address] Jessica Brock MD Dunbar, Maicol Toney MD Enteritis (Primary Dx); Generalized abdominal pain Discharge Disposition: Home or Self Care from Last 3 Months Medical History Medical History Date Comments Infantile [...] Sexual Orientation Not on file Obstetrics History Last Filed Vital Signs Vital Sign Reading Time Taken Comments Blood Pressure 126/88 10/28/2024 4:28 PM EDT Pulse 98 10/28/2024 4:28 PM EDT Temperature 36.1 C (97 F) 10/28/2024 4:28 PM EDT Respiratory Rate 18 10/28/2024 4:28 PM EDT Oxygen Saturation 99% 10/28/2024 4:28 PM EDT Inhaled Oxygen Concentration - - Weight 67.1 kg (148 lb) 10/28/2024 2:16 PM EDT Height 165.1 cm (5' 5 ) 10/28/2024 2:16 PM EDT Body Mass Index 24.63 10/28/2024 2:16 PM EDT Plan of Treatment Health Maintenance Due Date Last Done Comments Hepatitis B Vaccines (1 of 3 - 19+ 3-dose series) 1991 DTaP,Tdap,and Td Vaccines (2 - Td or Tdap) 03/20/2014 03/20/2004 Cholesterol Screening (Lipid Panel) 02/04/2022 Colorectal Cancer Screening: Colonoscopy 02/04/2022 HIV Screening 02/04/2022 Hepatitis C Screening 02/04/2022 Social Influencers of Health Screening 02/04/2022 Pneumococcal Vaccine: 50+ Years (1 of 1 - PCV) 2022 Zoster Vaccines (1 of 2) 2022 Depression Screening 03/09/2024 COVID-19 Vaccine ( - 2024- season) 2024 02/18/2021, 05/30/2020 Influenza Vaccine (#1) 2024 4, 11/20/2022, 12/08/2021, Additional history exists HIB Vaccines Aged Out No longer eligi [...] to complete this topic RSV Immunization Patients Under 20 months Aged Out No longer eligible based on patient's age to complete this topic Varicella Vaccines Aged Out No longer eligible based on patient's age to complete this topic Procedures Procedure Name Priority Date/Time Associated Diagnosis Comments CT ABDOMEN PELVIS W CONTRAST STAT 10/28/2024 6:07 PM EDT [place] URINE CULTURE TUBE STAT 10/28/2024 4:31 PM EDT URINALYSIS WITH REFLEX MICROSCOPIC AND CULTURE STAT 10/28/2024 4:31 PM EDT URINALYSIS WITH REFLEX MICROSCOPIC AND CULTURE STAT 10/28/2024 4:31 PM EDT CBC WITH AUTO DIFFERENTIAL STAT 10/28/2024 4:24 PM EDT LIPASE STAT 10/28/2024 4:24 PM EDT COMPREHENSIVE METABOLIC PANEL STAT 10/28/2024 4:24 PM EDT CBC AND DIFFERENTIAL STAT 10/28/2024 4:24 PM EDT from Last 3 Months Results * CT Abdomen Pelvis w Contrast (10/28/2024 6:07 PM EDT) Anatomical Region Laterality Modality Body Computed Tomogra phy 10/28/2024 6:44 PM EDT Impressions 10/28/2024 6:44 PM EDT 1. There is severe enteritis of distal small bowel. Consider infectious enteritis or Crohn's disease. 2. There is a small amount of pelvic free fluid. This document has been electronically signed by: Sabine Neal MD on 10/28/2024 18:44:56 Narrative 10/28/2024 6:44 PM EDT INDICATION: Bowel obstruction suspected CT abdomen and pelvis with contrast Comparison: CT/DC/SR - ABDOMEN AND PELVIS C+ CT - 12/20/22 08:55 EDT Findings: Small hiatal hernia. Clear lung bases. There are several tiny liver cysts. Remaining abdominal organs are unremarkable. There are no calcified gallstones. There is abnormal thickening of the wall of distal small bowel extending to the level of the terminal ileum. No pneumatosis or portal venous gas. No bowel obstruction. There is a small amount of pelvic free fluid. Unremarkable prostate gland and urinary bladder. Normal appendix. The bones are intact. Procedure Note Sabine Giordano MD - 10/28/2024 INDICATION: Bowel obstruction suspected CT abdomen and pelvis with contrast Comparison: CT/DC/SR - ABDOMEN AND PELVIS C+ CT - 12/20/22 08:55 EDT Findings: Small hiatal hernia. Clear lung bases. There are several tiny liver cysts. Remaining abdominal organs are unremarkable. There are no calcified gallstones. There is abnormal thickening of the wall of distal small bowel extending to the level of the terminal ileum. No pneumatosis or portal venous gas. No bowel obstruction. There is a small amount of pelvic free fluid. Unremarkable prostategland and urinary bladder. Normal appendix. The bones are intact. IMPRESSION: 1. There is severe enteritis of distal small bowel. Consider infectious enteritis or Crohn's disease. 2. There is a small amount of pelvic free fluid. This document has been electronically signed by: Sabine Neal MD on 10/28/2024 18:44:56 Jessica Brock MD [facility] [place]EDURES Final Result * (ABNORMAL) Urinalysis with reflex microscopic and culture (10/28/2024 4:31 PM EDT) Specific [place] Urine 1.025 1.003 - 1.030 LAB URINALYSIS - AUTOMATED METHOD 10/28/2024 4:45 PM [facility] pH, Urine 5.5 5.0 - 8.0 pH LAB URINALYSIS - AUTOMATED METHOD 10/28/2024 4:45 PM [facility] Leukocytes, Urine Negative Negative LAB URINALYSIS - AUTOMATED METHOD 10/28/2024 4:45 PM [facility] Nitrite, Urine Negative Negative LAB URINALYSIS - AUTOMATED METHOD 10/28/2024 4:45 PM [facility] Protein, Urine 30(A) <=Trace mg/dL LAB URINALYSIS - AUTOMATED METHOD 10/28/2024 4:45 PM [facility] Glucose, Urine Negative Negative mg/dL LAB URINALYSIS - AUTOMATED METHOD 10/28/2024 4:45 PM [facility] Ketones, Urine 40(A) Negative mg/dL LAB URINALYSIS - AUTOMATED METHOD 10/28/2024 4:45 PM [facility] Urobilinogen, Urine 0.2 0.2 - 1.0 mg/dL LAB URINALYSIS - AUTOMATED METHOD 10/28/2024 4:45 PM [facility] Bilirubin, Urine Negative Negative LAB URINALYSIS - AUTOMATED METHOD 10/28/2024 4:45 PM [facility] Blood, Urine Trace(A) Negative LAB URINALYSIS - AUTOMATED METHOD 10/28/2024 4:45 PM [facility] RBC, Urine 4.1(H) 0 - 4 /HPF LAB URINALYSIS - AUTOMATED METHOD 10/28/2024 4:45 PM [facility] WBC, Urine 1.8 0 - 4 /HPF LAB URINALYSIS - AUTOMATED METHOD 10/28/2024 4:45 PM [facility] Squamous Epithelial, Urine 12 0 - 60 /LPF LAB URINALYSIS - AUTOMATED METHOD 10/28/2024 4:45 PM [facility] Bacteria, Urine Negative Negative /HPF LAB URINALYSIS - AUTOMATED METHOD 10/28/2024 4:45 PM [facility] Hyaline Casts, Urine 0.4 0 - 3 /LPF LAB URINALYSIS - AUTOMATED METHOD 10/28/2024 4:45 PM [facility] Urine Urine specimen obtained by clean catch procedure / Unknown Non-blood Collection / Unknown 10/28/2024 4:31 PM EDT 10/28/2024 4:38 PM EDT us Jessica Brock MD LAB URINE ORDERABLES Final Res ult Performing Organization Address City/[facility]/ZIP Co de Phone Number [facility] [address] [place] [address], [place] [phone] * [place] urine culture tube (10/28/2024 4:31 PM EDT) Extra Tube Hold for add-ons. 10/28/2024 6:[address] [facility] Comment:Auto resulted. Urine Urine specimen obtained by clean catch procedure / Unknown Non-blood Collection / Unknown 10/28/2024 4:31 PM EDT 10/28/2024 4:38 PM EDT Jessica Brock MD LAB URINE ORDERABLES Final Res ult Performing Organization Address [facility]/ZIP Co de Phone Number [facility] [address] [place] [address], [place] [phone] * (ABNORMAL) CBC auto differential (10/28/2024 4:24 PM EDT) Pathologist [facility] WBC 7.9 4.8 - 10.8 K/mcL LAB HEMETOLOGY METHOD 10/28/2024 4:[address] [facility] RBC 5.30 4.50 - 5.50 M/mcL LAB HEMETOLOGY METHOD 10/28/2024 4:[address] [facility] Hemoglobin 15.6 13.5 - 17.5 g/dL LAB HEMETOLOGY METHOD 10/28/2024 4:[address] [facility] Hematocrit 46.4 42.0 - 54.0 % LAB HEMETOLOGY METHOD 10/28/2024 4:[address] [facility] MCV 87.4 79.0 - 98.0 FL LAB HEMETOLOGY METHOD 10/28/2024 4:[address] [facility] MCH 29.4 27.0 - 32.0 pcg LAB HEMETOLOGY METHOD 10/28/2024 4:42 PM [facility] MCHC 33.6 32.0 - 37.0 g/dL LAB HEMETOLOGY METHOD 10/28/2024 4:42 PM [facility] RDW 12.3 11.0 - 15.0 % LAB HEMETOLOGY METHOD 10/28/2024 4:42 PM [facility] Platelets 234 130 - 400 K/mcL LAB HEMETOLOGY METHOD 10/28/2024 4:42 PM [facility] MPV 9.5 7.0 - 11.0 FL LAB HEMETOLOGY METHOD 10/28/2024 4:42 PM [facility] NRBC 0.0 <1.0 % LAB HEMETOLOGY METHOD 10/28/2024 4:42 PM [facility] NRBC Absolute 0.00 <0.10 K/mcL LAB HEMETOLOGY METHOD 10/28/2024 4:42 PM [facility] Neutrophils Relative 80.3 % LAB HEMETOLOGY METHOD 10/28/2024 4:42 PM [facility] Lymphocytes Relative 10.6 % LAB HEMETOLOGY METHOD 10/28/2024 4:42 PM [facility] Monocytes Relative 8.3 % LAB HEMETOLOGY METHOD 10/28/2024 4:42 PM [facility] Eosinophils Relative 0.0 % LAB HEMETOLOGY METHOD 10/28/2024 4:42 PM [facility] Basophils Relative 0.4 % LAB HEMETOLOGY METHOD 10/28/2024 4:42 PM [facility] Immature Granulocytes Relative 0.4 % LAB HEMETOLOGY METHOD 10/28/2024 4:42 PM [facility] Neutrophils Absolute 6.36 1.50 - 7.00 K/mcL LAB HEMETOLOGY METHOD 10/28/2024 4:[address] [facility] Lymphocytes Absolute 0.84(L) 1.00 - 5.00 [facility] LAB HEMETOLOGY METHOD 10/28/2024 4:[address] [facility] Monocytes Absolute 0.66 0.20 - 1.00 [facility] LAB HEMETOLOGY METHOD 10/28/2024 4:[address] [facility] Eosinophils Absolute 0.00 0.00 - 0.50 [facility] LAB HEMETOLOGY METHOD 10/28/2024 4:[address] [facility] Basophils Absolute 0.03 0.00 - 0.20 [facility] HEMETOLOGY METHOD 10/28/2024 4:[address] [facility] Immature Granulocytes Absolute 0.03 0.00 - 0.03 [facility] HEMETOLOGY METHOD 10/28/2024 4:[address] [facility] Blood Venous blood specimen / Unknown Venipuncture / Unknown 10/28/2024 4:24 PM EDT 10/28/2024 4:37 PM EDT Jessica Brock MD LAB BLOOD ORDERABLES Final Res ult [facility] [address] [place] [address], * Lipase (10/28/2024 4:24 PM EDT) Lipase 46 13 - 75 unit/L LAB CHEMISTRY METHOD 10/28/2024 5:[address] [facility] Blood Venous blood specimen / Unknown Venipuncture / Unknown 10/28/2024 4:24 PM EDT 10/28/2024 4:37 PM EDT Jessica Brock MD LAB BLOOD ORDERABLES Final Res ult [facility] [address] [place] [address], * (ABNORMAL) Comprehensive metabolic panel (10/28/2024 4:24 PM EDT) Sodium 135 133 - 145 mmol/L LAB CHEMISTRY METHOD 10/28/2024 5:07 PM [facility] Potassium 3.8 3.5 - 5.5 mmol/L LAB CHEMISTRY METHOD 10/28/2024 5:07 PM [facility] Chloride 103 96 - 110 mmol/L LAB CHEMISTRY METHOD 10/28/2024 5:07 PM [facility] CO2 28 21 - 32 mmol/L LAB CHEMISTRY METHOD 10/28/2024 5:07 PM [facility] Anion Gap 4 3 - 11 LAB CHEMISTRY METHOD 10/28/2024 5:07 PM [facility] Glucose 117(H) 70 - 100 mg/dL LAB CHEMISTRY METHOD 10/28/2024 5:07 PM [facility] BUN 10 5 - 25 mg/dL LAB CHEMISTRY METHOD 10/28/2024 5:07 PM [facility] Creatinine 0.97 0.70 - 1.30 mg/dL LAB CHEMISTRY METHOD 10/28/2024 5:07 PM [facility] eGFR 94 >=60 mL/min/1. 73m2 LAB CHEMISTRY METHOD 10/28/2024 5:07 PM [facility] Comment:Calculation based on the Chronic Kidney Disease Epidemiology Collaboration (CKD-EPI) equation refit without adjustment for race. BUN/Creatinine Ratio 10.3 LAB CHEMISTRY METHOD 10/28/2024 5:07 PM [facility] Calcium 9.3 8.5 - 10.5 mg/dL LAB CHEMISTRY METHOD 10/28/2024 5:07 PM [facility] AST (SGOT) 19 10 - 42 unit/L LAB CHEMISTRY METHOD 10/28/2024 5:[address] [facility] ALT (SGPT) 21 10 - 60 unit/L LAB CHEMISTRY METHOD 10/28/2024 5:[address] [facility] Alkaline Phosphatase 100 42 - 121 unit/L LAB CHEMISTRY METHOD 10/28/2024 5:[address] [facility] Total Protein 7.6 6.0 - 8.0 g/dL LAB CHEMISTRY METHOD 10/28/2024 5:[address] [facility] Albumin 4.3 3.2 - 5.0 g/dL LAB CHEMISTRY METHOD 10/28/2024 5:[address] [facility] Total Bilirubin 1.4 0.0 - 1.4 mg/dL LAB CHEMISTRY METHOD 10/28/2024 5:[address] [facility] Blood Venous blood specimen / Unknown Venipuncture / Unknown 10/28/2024 4:24 PM EDT 10/28/2024 4:37 PM EDT us Jessica Brock MD LAB BLOOD ORDERABLES Final Res ult [facility] [address] [place] [address], from Last 3 Months Insurance [facility] [employer] Care Teams Guidance Secretary Relationship Specialty Start Date End Date Physician, No Pcp PCP - General 10/28/24
--- OUTSIDE RECORDS SUMMARY | 2024-11-14 16:01 | XMS_ITS | Patient Health Record ---
Author Organization [facility] Address [address] [place] [address] Care Team Providers Care Newspaper Editor Managing Name Role Phone Bryson (RETIRED) Sascha PEREZ Primary Care Provider Unavailable Tyler Perez Unavailable [phone] Allergies Allergen (clinical drug ingredient) Drug/Non Drug Allergy documented on EMR Reaction Allergy Type Onset Date Status erythromycin Erythromycin Unknown Drug Allergy A ctive Reason For Referral No Information Medications Medication SIG (Take, Route, Fr equency, Duration) Notes Start Date End Date Status Omeprazole 20 MG 1 capsule 30 minutes before morning meal Orally Once a day for 30 day(s) Active Lorazepam Just prn Active Immunizations Vaccine Route Administration Date Status Comme nts Influenza Unknown 12/07/2020 Administered Social History Tobacco Use: Social History Observation Description Date Details (start date - stop date) Never Smoker NA - NA Tobacco Use/Smoking Question Answer Notes Patient is a nonsmoker Alcohol Screen Question Answer Notes Did you have a drink containing alcohol in the p ast year? No Points 0 Interpretation Negative Section Notes: Nonsmoker; no significant al cohol Problems Problem Type SNOMED Code ICD Code Onset Dates Problem Status W/U Status Risk Notes Problem 00005141 Esophageal stricture (K22.2) Active confirmed Problem 53893818 Esophageal dysphagia (R13.19) Active confirmed Encounters Encounter Location Date Provider Diagnosis [facility] [address] [place] [id number] 12/28/2023 Tyler Perez Plan Of Treatment No Information Insurance Providers Payer Name Payer Address Payer Phone Subscriber Number Group Number Insured Name Patient Relationship to Insured Coverage Start Date Coverage End Date [facility] [address] [address] [place], [place] [id number] RYLIE ESCOBAR Self - patient is the insured MEDICARE [facility] [address] [place] [address] [phone] [id number] RYLIE ESCOBAR Self - patient is the insured Medical (General) History Medical History History ICD Code Anxiety disorder Denies ME,DM,CVA,Lung disease,renal dise ase Cerebral palsy GERD-hiatal hernia and esoph ageal stricture seen on December 2020 barium swallow Surgical History Surgery Date(Month/Year)
== END 2024-11-14 14:36 | disposition home or self-care (01) ==
LOC: HO.HGS 13:46
PROVIDERS: PCP Family Medicine; Visit Provider Surgery
DX: L72.0 Epidermal cyst (principal)
CPT/HCPCS: 11403

== ENCOUNTER 2024-11-28 12:50 | Outpatient (AMB) | payer OTHER, SELFPAY ==
[2024-11-28 13:16] VITALS: PULSE 72; BMI 23.1
--- NOTE | 2024-11-28 13:16 | MHC.OFFVIS ---
Vital Signs 11/28/24 13:16 Height 5 ft 5 in Weight 138 lb 14.259 oz BMI 23.1 BP not taken reason Medical Reason Pulse 72 Intake Visit Reasons: s/p excision lesion back Intake Note: Patient here s/p excision on mid lower back. Patient c/o: per pt not healing as expected WLE (): 11-14-2024 [employer] Required: No Accompanied by: Self / Same As Patient Allergies erythromycin base Allergy (Mild, Verified 11/28/24 13:40) Unknown HPI HPI s/p excision lesion back: Details: doing okay, in a yates because he has another appointment to go to. He states he has some concern about infection because he had a nurse at his mothers long-term look at it and it was inflamed. Denies pain at the site, denies fevers or chills. has has some bleeding from the site. Denies any purulent or fowl smelling discharge. describes the drainage and thin clear fluid mixed with blood. PFSH Medical History (Updated 11/28/24 @ 14:14 by ROMI Perez) GERD (gastroesophageal reflux disease) HLD (hyperlipidemia) Epidermal cyst Cerebral palsy Surgical History (Updated 11/28/24 @ 16:07 by Payam Hendrix PA-C) Hx of surgical procedure (11/14/24) Social History Housing: Apartment Patient Tobacco Use Status: Never used Tobacco e-Cigarette/Vaping Use: Never Used Substance Use Type: Marijuana service: No Current occupational status: employed Current occupation: [employer] Cognitive needs: No Hearing needs: No Vision needs: No Physical Exam Vital Signs: Last Vital Signs Pulse 72 11/28/24 13:16 BMI result Body Mass Index 23.1 Const General: comfortable and no acute distress Orientation/consciousness: patient oriented x3 Skin Full body images:  1. excision site, some scant serosanguineous discharge. mildly edematous, no warmth Neuro General: patient oriented x3 Assessment & Plan Assessment & Plan (1) Epidermal cyst: Code(s): L72.0 - Epidermal cyst Category: Medical (2) H/O excision of epidermal inclusion cyst: Code(s): Z98.890 - Other specified postprocedural states; Z87.2 - Personal history of diseases of the skin and subcutaneous tissue Category: Medical Plan 54 year old male returnign to the office for suture removed following an excision of a cyst on the right lower back. He had some concern for infection due to some swelling of the area. He has been afebrile, denies purulent discharge, has had scant serosanguenious drainage. On exam there is some mild swelling of the incision site. No warmth or purulent discharge noted. It is likely that there is irritation of the tissue due to the sutures. I removed the sutures at bedside, they were buried with skin healing over the sutures. I was able to remove without complication, there was some slight separation of the excision site, so i reenforced with steri strips. He can leave these on for about 5 days. He does not require scheduled follow up, can follow up as needed with any concerns. Pathology report as follows benign epidermal cyst. I discussed this case with my attending physician, Dr Hollis Coding Level of Care Code Est Pt Level 3 (10315) Diagnoses Epidermal cyst L72.0 H/O excision of epidermal inclusion cyst Z98.890; Z87.2
== END 2024-11-28 13:32 | disposition home or self-care (01) ==
LOC: HO.HGS 12:51
PROVIDERS: PCP Family Medicine
DX: L72.0 Epidermal cyst (principal); Z98.890 Other specified postprocedural states; Z87.2 Personal history of diseases of the skin and subcutaneous tissue
CPT/HCPCS: 99213

== ENCOUNTER 2024-11-28 12:50 | Outpatient (REF) | payer OTHER, SELFPAY ==
[2024-11-28 15:08] LABS: Total Hemoglobin (HGBA1C) 3677.4104 umol/L
[2024-11-28 15:31] LABS: Alanine Aminotransferase 20 U/L (0-40); Albumin Level 4.7 g/dL (3.5-5.0); Alkaline Phosphatase 101 U/L (39-117); Anion Gap 9 (12-20); Aspartate Amino Transferase 28 U/L (5-37); Blood Urea Nitrogen 8 mg/dL (9-16); Calcium 9.3 mg/dL (8.4-10.2); Carbon Dioxide 28 mmol/L (22-29); Chloride 109 mmol/L (96-108); Cholesterol 151 mg/dL (<200); Estimated Glomerular Filt Rate > 60; HDL Cholesterol 50 mg/dL (>40); Potassium 4.2 mmol/L (3.3-5.1); Sodium 142 mmol/L (135-145); Total Protein 7.6 g/dL (6.5-8.0); Triglycerides 44 mg/dL (<150)
[2024-11-28 15:54] LABS: Prostate Specific Antigen 1.43 ng/mL (<0.05-4.0)
== END 2024-11-28 12:51 | disposition home or self-care (01) ==
LOC: HO.LAB 12:50
PROVIDERS: Absent Provider Physician Assistant; PCP Physician Assistant
DX: Z91.89 Other specified personal risk factors, not elsewhere classified (principal); E78.5 Hyperlipidemia, unspecified; K21.9 Gastro-esophageal reflux disease without esophagitis; G80.9 Cerebral palsy, unspecified; L72.0 Epidermal cyst
CPT/HCPCS: 36415; 80048; 80061; 80076; 83036; 84153; 99202

== ENCOUNTER 2024-11-28 13:32 | Outpatient (AMB) | payer OTHER, SELFPAY ==
--- NOTE | 2024-11-28 13:40 | A.OFFPC_ITS ---
Vital Signs 11/28/24 13:45 Height 5 ft 5 in Weight 63.503 kg BMI 23.3 BP 104/78 Respiration 14 Pulse 72 Pulse Source Pulse Oximeter Temp 97.5 F Temp Source Temporal Artery Scan Pulse Oximetry (%) 96 Oxygen Delivery Method Room Air Intake Visit Reasons: Routine / Dr Massey Unleavened Dough Mixer Required: No Accompanied by: Self / Same As Patient Allergies erythromycin base Allergy (Mild, Verified 11/28/24 13:40) Unknown Tobacco use date assessed: 11/28/24 Dental Screening Dental Screen Date: 11/28/24 Did you have a dental visit in the last 12 months?: Yes Did you have a dental problem in the last 6 months where you did not have access to dental care?: No Was dental information given to patient?: No HPI HPI Comments History of Present Illness Details 54-year-old male with history of hyperli pidemia, GERD, epidermal cyst, cerebral palsy presenting to the office today for management of chronic conditions and to establish care. Former patient of Dr. Massey. Hyperlipidemia-due for lipid panel. Not on statin GERD-controlled with omeprazole mostly, occasional need for Tums Epidermal cyst-recent excision by General surgery earlier this month. Prior to this appointment, had sutures removed. No drainage, fevers, chills. Cerebral palsy-difficulty with speech and fine motor controlled. Difficulty with writing and easy fatigability. He does also acknowledge poor diet. Walks his dog for exercise but otherwise no formal exercise. Concerns: None Health maintenance: Last Cologuard 01/2024 with 3 year follow-up, negative ROS: None EXAM: Constitutional - Awake and Alert, No apparent distress Eyes - PERRL Cardiovascular - S1S2, RRR, No edema Respiratory - Normal lung expansion, Normal respiratory effort, No respiratory distress, CTA bilaterally Extremities - no calf tenderness bilaterally, no swelling Skin - Warm/Dry Neurological - Alert & oriented x3, dysarthria noted Psychological - Appropriate affect [facility] Medical History (Updated 11/28/24 @ 14:14 by ROMI Perez) GERD (gastroesophageal reflux disease) HLD (hyperlipidemia) Epidermal cyst Cerebral palsy Surgical History Hx of surgical procedure (11/14/24) Social History Housing: Apartment Patient Tobacco Use Status: Never used Tobacco e-Cigarette/Vaping Use: Never Used Substance Use Type: Marijuana service: No Current occupational status: employed Current occupation: [employer] Cognitive needs: No Hearing needs: No Vision needs: No Questionnaire AUDIT C Alcohol Use Questionnaire (AUDIT-C) 1. How often do you have a drink containing alcohol?: Monthly or less Total Score: 1 Physical exam (Primary Care) Vital Signs: Last Vital Signs Temp 97.5 F 11/28/24 13:45 Pulse 72 11/28/24 13:45 Resp 14 11/28/24 13:45 BP 104/78 11/28/24 13:45 Pulse Ox 96 11/28/24 13:45 Oxygen Delivery Method Room Air 11/28/24 13:45 BMI result Body Mass Index 23.3 Tobacco/Smoking Status: Tobacco use Status Tobacco use date assessed 11/28/24 11/28/24 13:47 Patient Tobacco Use Status Never used Tobacco 11/28/24 13:47 e-Cigarette/Vaping Use Never Used 11/28/24 13:47 Coding Level of Care Code New Pt Level 3 (08890) Complex EM visit Add On G2211 Diagnoses GERD (gastroesophageal reflux disease) K21.9 HLD (hyperlipidemia) E78.5 Cerebral palsy G80.9 Epidermal cyst L72.0 Assessment & Plan Assessment & Plan (1) GERD (gastroesophageal reflux disease): Code(s): K21.9 - Gastro-esophageal reflux disease without esophagitis Category: Medical Plan: Stable. Omeprazole as prescribed. Tums p.r.n.. Avoiding triggering foods (2) HLD (hyperlipidemia): Code(s): E78.5 - Hyperlipidemia, unspecified Category: Medical Plan: Lipid panel ordered. ASCVD risk score to be calculated pending results (3) Cerebral palsy: Code(s): G80.9 - Cerebral palsy, unspecified Category: Medical Plan: . Overall, not limiting (4) Epidermal cyst: Code(s): L72.0 - Epidermal cyst Category: Medical Plan: No evidence of infection. Continue following with General surgery as needed Plan Follow-up in the office for annual physical exam in 5 months. Labs to be completed following visit today Orders: Orders Lipid Panel Today E78.5 - Hyperlipidemia, unspecified, Z91.89 - Other specified personal risk factors, not elsewhere classified Liver Panel Today E78.5 - Hyperlipidemia, unspecified, Z91.89 - Other specified personal risk factors, not elsewhere classified Hemoglobin A1c Today E78.5 - Hyperlipidemia, unspecified, Z91.89 - Other specified personal risk factors, not elsewhere classified Prostate Specific Antigen Today E78.5 - Hyperlipidemia, unspecified, Z91.89 - Other specified personal risk factors, not elsewhere classified Basic Metabolic Panel Today E78.5 - Hyperlipidemia, unspecified, Z91.89 - Other specified personal risk factors, not elsewhere classified
[2024-11-28 13:45] VITALS: BP 104/78; PULSE 72; RESP 14; TEMP 36.4; O2SAT 96; BMI 23.3
== END 2024-11-28 14:10 | disposition home or self-care (01) ==
LOC: HO.HMCHD 13:33
PROVIDERS: PCP Family Medicine; Visit Provider Physician Assistant
DX: K21.9 Gastro-esophageal reflux disease without esophagitis (principal); E78.5 Hyperlipidemia, unspecified; G80.9 Cerebral palsy, unspecified; L72.0 Epidermal cyst